=== PATIENT | male | born 2000 | race Caucasian/White ===

== ENCOUNTER 2022-11-13 09:47 | Day surgery (SDC) | payer OTHER ==
[2022-11-12 11:52] VITALS: BMI 26.6
[2022-11-13] MEDS ORDERED: Acetaminophen 500 MG TAB ONE (11:22)
[2022-11-13] MEDS ORDERED: Gabapentin 300 MG CAP ONE (11:23)
[2022-11-13] MEDS ORDERED: Ketorolac Tromethamine 30 MG/ML VIAL ONE ×2 (11:55→13:54)
[2022-11-13] MEDS ORDERED: Sodium Chloride 0.9% 100 ML ONE (11:56)
[2022-11-13] MEDS ORDERED: CEFAZOLIN 2 GM VIAL ONE (11:56)
[2022-11-13] MEDS ORDERED: metroNIDAZOLE 500 MG/100 ML BAG ONE (11:57)
[2022-11-13 12:25] LABS: #Basophils 0.1 thou/uL (0.0-0.2); #Lymphocytes 2.8 thou/uL (1.20-3.40); #Monocytes 0.7 thou/uL (0.11-0.59); #Neutrophils 4.2 thou/uL (1.40-6.50); %Basophils 1.1 % (0.0-1.0); %Eosinophils 0.6 % (0.0-10.0); %Lymphocytes 36.3 % (28.0-48.0); %Monocytes 8.6 % (0.0-4.0); %Neutrophils 53.4 % (31.0-61.0); Hemoglobin 15.3 g/dL (14.0-18.0); Mean Corpuscular HGB CONC 33.8 g/dL (32.0-36.0); Mean Corpuscular Hemoglobin 31.2 pg (25.0-35.0); Mean Corpuscular Volume 92.3 fl (78.0-98.0); Mean Platelet Volume 7.4 fL (7.4-10.4); Platelet Count 253 10x3/uL (130-400); RBC Distribution Width 11.7 % (11.5-14.5); Red Blood Cell (RBC) Count 4.91 mill/uL (4.00-5.20); White Blood Cell (WBC) Count 7.8 10x3/uL (4.8-10.8)
[2022-11-13 12:43] LABS: Anion Gap 12 mmol/L (10-20); BUN (Urea Nitrogen) 10 mg/dL (8.9-20.6); Calc. Creatinine Clearance 167 mL/min (70-130); Calcium 9.5 mg/dL (7.8-10.44); Carbon Dioxide 24 mmol/L (22-29); Chloride 106 mmol/L (98-107); Estimated GFR 130; Glucose 83 mg/dL (70-105); Potassium 3.9 mmol/L (3.5-5.1); Sodium 138 mmol/L (136-145)
[2022-11-13] MEDS ORDERED: SUGAMMADEX SODIUM 200 MG/2 ML VIAL ONE (13:16)
[2022-11-13] MEDS ORDERED: Fentanyl 250 MCG/5 ML VIAL ONE ×2 (13:16→15:35)
[2022-11-13] MEDS ORDERED: HYDROmorphone 2 MG/ML VIAL ONE (13:16)
[2022-11-13] MEDS ORDERED: Bupivacaine HCl 0.5%/Epinephrine 1:200,000/PF 30 ml Vial ONE (13:22)
[2022-11-13] MEDS ORDERED: Lidocaine 2% PF 5 ML VIAL ONE (13:22)
[2022-11-13] MEDS ORDERED: Lidocaine Jelly 2% Urojet 10 ML ONE (13:22)
[2022-11-13] MEDS ORDERED: Midazolam HCl 2 mg/2 ml Vial ONE ×2 (13:40→15:35)
[2022-11-13] MEDS ORDERED: Rocuronium Bromide 10 MG/ML (10ML VIAL) ONE (13:54)
[2022-11-13] MEDS ORDERED: Lidocaine 1% PF 5 ML VIAL ONE (13:54)
[2022-11-13] MEDS ORDERED: PROPOFOL 200 MG/20 ML VIAL ONE (13:54)
[2022-11-13] MEDS ORDERED: Dexamethasone 20 MG/5 ML VIAL ONE (13:54)
[2022-11-13] MEDS ORDERED: Ondansetron PF 4 MG/2 ML Vial ONE (13:54)
== END 2022-11-13 17:33 | disposition home or self-care (01) ==
LOC: SDC 09:47
PROVIDERS: ATTEND Specialist
PROC: 0JB90ZZ Excision of Buttock Subcutaneous Tissue and Fascia, Open Approach (ICD-10-PCS; principal; 2022-11-13)
PROC: 0H88XZZ Division of Buttock Skin, External Approach (ICD-10-PCS; principal; 2022-11-13)
DX: L05.91 Pilonidal cyst without abscess (principal); K60.3 Anal fistula; F17.290 Nicotine dependence, other tobacco product, uncomplicated
CPT/HCPCS: 36415; 80048; 85025; 88304; J1100; J1170; J1885; J2001; J2250; J2405; J2704; J3010; J3490